=== PATIENT | male | born 1950 | race Caucasian/White ===

== ENCOUNTER 2017-12-17 10:15 | Inpatient (IN) | payer MEDICARE, BC ==
[~2017-12-17] VITALS: Ht 188 cm; Wt 85.2 kg
[2018-01-07] MEDS ORDERED: NO HOME MEDS (10:31)
[2018-01-07 11:27] LABS: CLARITY,URINE CLEAR (Clear); COLOR,URINE YELLOW (Yellow); GLUCOSE, URINE NEGATIVE (Neg); KETONES,URINE NEGATIVE (Neg); LEUKOCYTE ESTERASE ,URINE NEGATIVE (Neg); NITRITES, URINE NEGATIVE (Neg); OCCULT BLOOD,URINE NEGATIVE (Neg); PROTEIN,URINE NEGATIVE (Neg); UROBILINOGEN,URINE 0.2 E.U/dL (0.2-1.0)
[2018-01-07 11:30] LABS: BASOPHILS % (AUTO) 0.6 % (0-1); EOSINOPHILS # (AUTO) 0.1 X10'3 (0-0.9); EOSINOPHILS % (AUTO) 1.5 % (0-6); LYMPHOCYTES # (AUTO) 1.4 X10'3 (1.1-4.8); LYMPHOCYTES % (AUTO) 24.3 % (21-51); MEAN CORPUSCULAR HEMOGLOBIN 29.2 PG (27.0-31.0); MEAN CORPUSCULAR HGB CONC 33.7 % (33.0-36.5); MEAN CORPUSCULAR VOLUME 86.6 FL (78-98); MEAN PLATELET VOLUME 7.6 FL (7.4-10.4); MONOCYTES # (AUTO) 0.4 X10'3 (0-0.9); MONOCYTES % (AUTO) 6.1 % (2-12); NEUTROPHILS # (AUTO) 3.9 X10'3 (1.8-7.7); NEUTROPHILS % (AUTO) 67.5 % (42-75); PRE OP HEMATOCRIT 42.4 % (42.0-52.0); PRE OP HEMOGLOBIN 14.3 g/dL (14.0-17.9); PRE OP PLATELET COUNT 242 X10'3 (140-440); RED BLOOD COUNT 4.89 X10'6 (4.70-6.10); RED CELL DISTRIBUTION WIDTH 12.7 % (11.5-14.5)
[2018-01-07 11:40] LABS: UA COLLECTION TYPE CLN CATCH MIDSTREAM
[2018-01-07 11:41] LABS: ALBUMIN 3.6 G/DL (3.4-5.0); ALBUMIN/GLOBULIN RATIO 1.3 (1.1-1.5); ALKALINE PHOSPHATASE 74 IU/L (46-116); BLOOD UREA NITROGEN 20 MG/DL (7-18); BUN/CREATININE RATIO 20.6 (5.4-32.0); CALCIUM 8.9 MG/DL (8.5-10.1); CHLORIDE 106 MMOL/L (99-107); CREATININE 0.97 MG/DL (0.60-1.10); PRE OP ALT 24 U/L (30-65); PRE OP ANION GAP 10 (8-16); PRE OP AST 10 U/L (10-37); PRE OP BILIRUB, TOTAL 0.3 MG/DL (0.0-1.0); PRE OP GLUCOSE 111 MG/DL (70-104); PRE OP POTASSIUM 3.9 MMOL/L (3.4-5.1); PRE OP SODIUM 142 MMOL/L (135-145); TOTAL CARBON DIOXIDE 26.1 MMOL/L (24-32); TOTAL PROTEIN 6.4 G/DL (6.4-8.2); eGFR 77 ML/MIN
[2018-01-07 11:47] LABS: PRE OP INR 0.9 INR; PRE OP PROTIME 9.8 SECONDS (9.0-12.0)
[2018-01-14] VITALS (19 sets, daily range): BP systolic 86–136; BP diastolic 41–69
[2018-01-14] MEDS ORDERED: ringers solution, lacted 1,000 ML IV SCH ×2 (05:00→09:01)
[2018-01-14] MEDS ORDERED: celeCOXIB 100mg capsule PO ONE (05:30)
[2018-01-14] MEDS ORDERED: gabapentin 300mg capsule PO ONE (05:30)
[2018-01-14] MEDS ORDERED: famotidine 20mg tablet PO ONE (05:30)
[2018-01-14] MEDS ORDERED: acetaminophen 325mg tablet PO ONE (05:30)
[2018-01-14] MEDS ORDERED: oxyCODONE SR 10mg (sust. release) tab -2 tabs (20mg) PO ONE (05:30)
[2018-01-14] MEDS ORDERED: vancomycin inj 1,500 MG in normal saline 300ml IV soln IV ONE (05:30)
[2018-01-14] MEDS ORDERED: tranexamic acid inj. 1,000 MG in normal saline 100ml IV soln 90 ML IV ONE (05:30)
[2018-01-14] MEDS ORDERED: metoclopramide 5 mg/ml inj IV ONE (05:30)
[2018-01-14] MEDS ORDERED: cefazolin/dext.iso 2gm/100 ML IV ONE (05:30)
[2018-01-14] MEDS ORDERED: LIDOcaine 1% (10mg/ml) 2ml vial ONE (06:05)
[2018-01-14] MEDS: potassium cl 20mEq in 1/2 NS 1,000 ML IV SCH ×3 (06:54→22:54)
[2018-01-14] MEDS ORDERED: magnesium hydroxide 30ml (MOM) UD suspension PO PRN (06:55)
[2018-01-14] MEDS ORDERED: bisacodyl 10mg suppository rectal RC PRN (06:55)
[2018-01-14] MEDS ORDERED: oxyCODONE/APAP 5-325mg tablet PO PRN (06:55)
[2018-01-14] MEDS ORDERED: diphenhydrAMINE 25mg capsule PO PRN ×2 (06:55)
[2018-01-14] MEDS ORDERED: HYDROmorphone 1 mg/ml syringe IV PRN ×2 (06:55)
[2018-01-14] MEDS ORDERED: acetaminophen 325mg tablet PO PRN (06:55)
[2018-01-14] MEDS ORDERED: tranexamic acid inj. 850 MG in normal saline 100ml IV soln 91.5 ML IV ONE (06:55)
[2018-01-14] MEDS ORDERED: ondansetron/PF 4mg/2ml inj IV PRN ×3 (06:55→09:05)
[2018-01-14] MEDS ORDERED: vancomycin 1,000mg inj ONE (07:00)
[2018-01-14] MEDS: gabapentin 300mg capsule PO SCH ×3 (08:00→20:50)
[2018-01-14] MEDS: multivitamins, therapeutics tablet PO SCH (08:00)
[2018-01-14] MEDS: ascorbic acid 500mg tablet PO SCH ×2 (08:00→20:50)
[2018-01-14] MEDS ORDERED: cefazolin/dext.iso 2gm/100ml 100 ML IV SCH (08:00)
[2018-01-14] MEDS ORDERED: ROPIVAcaine 0.5% (5mg/ml) 30ml vial ONE (08:08)
[2018-01-14] MEDS ORDERED: cloNIDine hcl/PF 100mcg/ml inj ONE (08:08)
[2018-01-14] MEDS ORDERED: tetracaine 1% (10mg/ml) pres. free inj. ONE (08:09)
[2018-01-14] MEDS ORDERED: MIDAZolam 1mg/ml 10ml vial ONE (08:10)
[2018-01-14] MEDS ORDERED: fentaNYL/PF 50MCG/1 ML 2ML syringe ONE (08:11)
[2018-01-14] MEDS ORDERED: morphine /PF 1mg/ml 10ml inj. ONE (08:11)
[2018-01-14] MEDS ORDERED: propofol inj 20 ML IV ONE ×2 (08:29)
[2018-01-14] MEDS: aspirin 325mg tablet PO SCH (08:30)
[2018-01-14] MEDS ORDERED: ePHEDrine 50MG/ML INJ. ONE (08:35)
[2018-01-14] MEDS ORDERED: meperidine/PF 25mg/ml syringe IV PRN ×2 (09:05)
[2018-01-14] MEDS ORDERED: diphenhydrAMINE 50 mg/ml inj IV PRN (09:05)
[2018-01-14] MEDS ORDERED: labetalol 20mg/4ml (5mg/ml) syringe IV PRN (09:05)
[2018-01-14] MEDS ORDERED: hydrALAZINE 20mg/ml inj. IV PRN (09:05)
[2018-01-14] MEDS ORDERED: morphine 4 MG/ML inj SYRINge IV PRN ×2 (09:05)
[2018-01-14] MEDS ORDERED: ROPIVAcaine inj 250 MG, ketorolac tromethamine inj. 30 MG, CloNIDine/PF inj 80 MCG, epi... IU ONE ×5 (09:15)
[2018-01-14] MEDS ORDERED: ROPIVAcaine inj 250 MG, ketorolac tromethamine inj. 30 MG, epiNEPHrine inj 0.5 MG in no... IU ONE (09:20)
[2018-01-14] MEDS: cefazolin/dext.iso 2gm/100ml 100 ML IV SCH ×2 (16:10→23:44)
[2018-01-14] MEDS: sennosides 8.6mg tablet PO SCH (20:50)
[2018-01-15 02:00] VITALS: BP 114/66
[2018-01-15] MEDS: potassium cl 20mEq in 1/2 NS 1,000 ML IV SCH (03:34)
[2018-01-15 05:00] VITALS: BP 105/60
[2018-01-15] MEDS: oxyCODONE/APAP 10/325mg tablet PO PRN ×4 (05:44→20:24)
[2018-01-15 06:03] LABS: BASOPHILS % (AUTO) 0.2 % (0-1); EOSINOPHILS % (AUTO) 0.1 % (0-6); HEMATOCRIT 31.1 % (42.0-52.0); HEMOGLOBIN 10.9 g/dl (14.0-17.9); LYMPHOCYTES # (AUTO) 1.1 X10'3 (1.1-4.8); LYMPHOCYTES % (AUTO) 10.5 % (21-51); MEAN CORPUSCULAR HEMOGLOBIN 30.3 PG (27.0-31.0); MEAN CORPUSCULAR HGB CONC 35.1 % (33.0-36.5); MEAN CORPUSCULAR VOLUME 86.4 FL (78-98); MEAN PLATELET VOLUME 8.1 FL (7.4-10.4); MONOCYTES # (AUTO) 0.7 X10'3 (0-0.9); MONOCYTES % (AUTO) 6.5 % (2-12); NEUTROPHILS # (AUTO) 8.3 X10'3 (1.8-7.7); NEUTROPHILS % (AUTO) 82.7 % (42-75); PLATELET COUNT 179 X10'3 (140-440); RED CELL DISTRIBUTION WIDTH 11.8 % (11.5-14.5); WHITE BLOOD COUNT 10.1 X10'3 (4.5-11.0)
[2018-01-15 06:16] LABS: ANION GAP 8 (8-16); CHLORIDE 105 MMOL/L (99-107); POTASSIUM 4.3 MMOL/L (3.5-5.1); SODIUM 140 MMOL/L (135-145); TOTAL CARBON DIOXIDE 26.6 MMOL/L (24-32)
[2018-01-15] MEDS: multivitamins, therapeutics tablet PO SCH (09:04)
[2018-01-15] MEDS: ascorbic acid 500mg tablet PO SCH ×2 (09:04→20:23)
[2018-01-15] MEDS: aspirin 325mg tablet PO SCH (09:04)
[2018-01-15] MEDS: gabapentin 300mg capsule PO SCH ×3 (09:04→20:23)
[2018-01-15 10:00] VITALS: BP 95/50
[2018-01-15 14:00] VITALS: BP 117/66
[2018-01-15 18:00] VITALS: BP 97/57
[2018-01-15] MEDS: celeCOXIB 100mg capsule PO SCH (20:23)
[2018-01-15] MEDS: sennosides 8.6mg tablet PO SCH (20:23)
[2018-01-16] MEDS: potassium cl 20mEq in 1/2 NS 1,000 ML IV SCH ×2 (00:46→00:47)
[2018-01-16] MEDS: oxyCODONE/APAP 10/325mg tablet PO PRN ×2 (05:05→10:39)
[2018-01-16 06:20] LABS: BASOPHILS % (AUTO) 0.4 % (0-1); EOSINOPHILS # (AUTO) 0.1 X10'3 (0-0.9); EOSINOPHILS % (AUTO) 0.9 % (0-6); HEMATOCRIT 30.5 % (42.0-52.0); HEMOGLOBIN 10.8 g/dl (14.0-17.9); LYMPHOCYTES # (AUTO) 0.9 X10'3 (1.1-4.8); LYMPHOCYTES % (AUTO) 13.1 % (21-51); MEAN CORPUSCULAR HEMOGLOBIN 30.4 PG (27.0-31.0); MEAN CORPUSCULAR HGB CONC 35.3 % (33.0-36.5); MEAN CORPUSCULAR VOLUME 86.1 FL (78-98); MEAN PLATELET VOLUME 7.9 FL (7.4-10.4); MONOCYTES # (AUTO) 0.6 X10'3 (0-0.9); MONOCYTES % (AUTO) 9.7 % (2-12); NEUTROPHILS % (AUTO) 75.9 % (42-75); PLATELET COUNT 157 X10'3 (140-440); RED BLOOD COUNT 3.55 X10'6 (4.70-6.10); RED CELL DISTRIBUTION WIDTH 12.2 % (11.5-14.5); WHITE BLOOD COUNT 6.6 X10'3 (4.5-11.0)
[2018-01-16 06:55] VITALS: BP 112/64
[2018-01-16] MEDS: celeCOXIB 100mg capsule PO SCH (07:11)
[2018-01-16] MEDS: ascorbic acid 500mg tablet PO SCH (07:11)
[2018-01-16] MEDS: gabapentin 300mg capsule PO SCH (07:11)
[2018-01-16] MEDS: multivitamins, therapeutics tablet PO SCH (07:11)
[2018-01-16] MEDS: aspirin 325mg tablet PO SCH (07:11)
[2018-01-16] MEDS ORDERED: ASPI-1 PO (08:33)
[2018-01-16 10:45] VITALS: BP 120/59
== END 2018-01-16 10:45 | disposition home or self-care (01) | DRG 470 ==
LOC: PAS IN 01-14 05:28 → EDSTATUS 01-14 07:45 → ORTHO 4S 01-14 12:15
PROVIDERS: ADMIT Orthopaedic Surgery; ATTEND Orthopaedic Surgery
PROC: 3E0T3BZ Introduction of Anesthetic Agent into Peripheral Nerves and Plexi, Percutaneous Approach (ICD-10-PCS; 2018-01-14)
PROC: 0SRC0J9 Replacement of Right Knee Joint with Synthetic Substitute, Cemented, Open Approach (ICD-10-PCS; principal; 2018-01-14 07:59)
DX: M17.11 Unilateral primary osteoarthritis, right knee (principal); D62 Acute posthemorrhagic anemia; Z88.0 Allergy status to penicillin; Z79.899 Other long term (current) drug therapy; Z79.82 Long term (current) use of aspirin; Z87.891 Personal history of nicotine dependence
CPT/HCPCS: 36415; 71046; 73560; 80051; 80053; 81003; 85025; 85610; 85730; 86885; 86900; 86901; 86920; 87070; 93005; 97110; 97116; 97162; 97530; A6449; A6455; A7000; C1713; C1758; C1776; J0171; J0690; J0735; J1885; J2250; J2274; J2405; J2704; J2765; J2795; J3010; J3370; J3490; J7030; J7120